=== PATIENT | female | born 1995 ===

== ENCOUNTER → 2023-07-25 | Outpatient (CLI) | payer OTHER ==
[2023-07-25 10:39] LABS: Source, Urine Clean Catch
[2023-07-25 13:31] LABS: BASOPHILS ABSOLUTE AUTO 0.06 K/mm3 (0.00-0.23); BASOPHILS PERCENT AUTO 1 % (0-2); EOSINOPHILS ABSOLUTE AUTO 0.17 K/mm3 (0.00-0.68); EOSINOPHILS PERCENT AUTO 2 % (0-6); Hemoglobin 14.2 g/dL (11.5-16.0); IMMATURE GRAN ABSOLUTE AUTO 0.02 K/mm3 (0.00-0.10); IMMATURE GRAN PERCENT AUTO 0 % (0-1); LYMPHOCYTES ABSOLUTE AUTO 1.53 K/mm3 (0.84-5.20); LYMPHOCYTES PERCENT AUTO 20 % (21-46); MONOCYTES ABSOLUTE AUTO 0.72 K/mm3 (0.16-1.47); MONOCYTES PERCENT AUTO 9 % (4-13); Mean Corpuscular HGB 28.9 pg (26.0-34.0); Mean Corpuscular HGB Conc 33.8 g/dL (31.5-36.5); Mean Corpuscular Volume 86 fL (80-100); NEUTROPHILS ABSOLUTE AUTO 5.31 K/mm3 (1.96-9.15); NEUTROPHILS PERCENT AUTO 68 % (41-73); Platelet Count 287 K/mm3 (150-400); RDW Coefficient Variation 13.5 % (11.7-14.2); RDW Standard Deviation 42.4 fL (35.1-46.3); Red Blood Cell Count 4.91 M/mm3 (3.80-5.20); White Blood Cell Count 7.81 K/mm3 (4.00-11.30)
[2023-07-25 14:03] LABS: Bacteria Few /hpf; Red Blood Cells, Urine 0-2 /hpf (0-2); Squamous Epithelial Cells Mod /hpf (Few)
[2023-07-26 17:53] LABS: HEPATITIS B SURFACE ANTIGEN Negative (Negative)
[2023-07-27 10:03] LABS: HIV 1,2 COMBO ANTIGEN/ANTIBODY Negative (Negative)
[2023-07-27 11:42] LABS: HEPATITIS C AB CIA INTERP Negative (Negative); HEPATITIS C ANTIBODY CIA INDEX 0.06 IV
== END ==
LOC: LAB SHORT 10:31 → LAB 10:31
PROVIDERS: Advanced Practice Midwife
DX: Z34.01 Encounter for supervision of normal first pregnancy, first trimester (principal)
CPT/HCPCS: 36415; 81015; 84443; 85025; 86592; 86762; 86803; 86850; 86900; 86901; 87086; 87340; 87389

== ENCOUNTER → 2024-02-15 | Outpatient (CLI) | payer OTHER, BC ==
[2024-02-15 15:10] LABS: Bacterial Vaginosis PCR Negative (NEGATIVE); Candida Group, PCR NOT DETECTED (NOT DETECT); Candida glabrata-krusei, PCR NOT DETECTED (NOT DETECT)
== END ==
LOC: LAB SHORT 10:39 → LAB 10:39
PROVIDERS: Advanced Practice Midwife
DX: N76.0 Acute vaginitis (principal)
CPT/HCPCS: 87481; 87661; 87801

== ENCOUNTER 2024-03-02 18:46 | Inpatient (IN) | payer OTHER, BC ==
[2024-03-02] VITALS (17 sets, daily range): BP systolic 98–128; BP diastolic 57–80
[~2024-03-02] VITALS: Ht 152.4 cm; Wt 74.1 kg
[2024-03-02] MEDS ORDERED: Lactated Ringer's 1,000 ML IV PRN ×5 (19:25→20:30)
[2024-03-02] MEDS ORDERED: Lactated Ringer's 1,000 ML IV SCH (19:30)
[2024-03-02] MEDS ORDERED: FentaNYL 2mcg/ml-Bup 0.1% Epd 250 ML EPI PRN (19:30)
[2024-03-02] MEDS ORDERED: OXYTOCIN/RINGER'S LACTATE 500 ML IV PRN (19:30)
[2024-03-02] MEDS ORDERED: Ondansetron HCl 2 MG / ML 2ML Vial IV PRN (19:30)
[2024-03-02] MEDS ORDERED: Acetaminophen 500 MG Tab PO PRN (19:30)
[2024-03-02] MEDS ORDERED: ePHEDrine Sulfate 50 MG/ML 1ML Injection XX PRN (19:30)
[2024-03-02] MEDS ORDERED: Calcium Carbonate 500 MG Tab Chew PO PRN (19:30)
[2024-03-02] MEDS ORDERED: Carboprost Tromethamine 250 MCG/ML 1ML Amp IM PRN (19:30)
[2024-03-02] MEDS ORDERED: Tranexamic Acid 100 ML IV SCH (19:30)
[2024-03-02] MEDS ORDERED: Oxytocin 10 Unit / ML Vial IM PRN (19:30)
[2024-03-02] MEDS ORDERED: Methylergonovine Maleate 0.2MG / ML 1ML Amp IM PRN (19:30)
[2024-03-02] MEDS ORDERED: Misoprostol 200 MCG Tab PR PRN (19:30)
[2024-03-02] MEDS ORDERED: Misoprostol 200 MCG Tab BC PRN (19:30)
[2024-03-02 20:21] LABS: BASOPHILS ABSOLUTE AUTO 0.04 K/mm3 (0.00-0.23); BASOPHILS PERCENT AUTO 0 % (0-2); EOSINOPHILS ABSOLUTE AUTO 0.74 K/mm3 (0.00-0.68); EOSINOPHILS PERCENT AUTO 8 % (0-6); Hematocrit 39.4 % (33.0-51.0); Hemoglobin 13.6 g/dL (11.5-16.0); IMMATURE GRAN ABSOLUTE AUTO 0.08 K/mm3 (0.00-0.10); IMMATURE GRAN PERCENT AUTO 1 % (0-1); LYMPHOCYTES ABSOLUTE AUTO 1.54 K/mm3 (0.84-5.20); LYMPHOCYTES PERCENT AUTO 17 % (21-46); MONOCYTES PERCENT AUTO 11 % (4-13); Mean Corpuscular HGB 30.2 pg (26.0-34.0); Mean Corpuscular HGB Conc 34.5 g/dL (31.5-36.5); Mean Corpuscular Volume 88 fL (80-100); Mean Platelet Volume 11.9 fL (9.1-12.4); NEUTROPHILS ABSOLUTE AUTO 5.54 K/mm3 (1.96-9.15); NEUTROPHILS PERCENT AUTO 62 % (41-73); Platelet Count 198 K/mm3 (150-400); RDW Coefficient Variation 14.4 % (11.7-14.2); RDW Standard Deviation 45.9 fL (35.1-46.3); White Blood Cell Count 8.94 K/mm3 (4.00-11.30)
[2024-03-02] MEDS ORDERED: FentaNYL Citrate 50 MCG/ML 2 ML Injection IV PRN (21:40)
[2024-03-02] MEDS ORDERED: FentaNYL Citrate 50 MCG/ML 2 ML Injection ONE (21:41)
[2024-03-03] VITALS (15 sets, daily range): BP systolic 107–122; BP diastolic 53–77
[2024-03-03] MEDS ORDERED: Acetaminophen 500 MG Tab PO PRN (03:05)
[2024-03-03] MEDS ORDERED: Ketorolac Tromethamine 30mg Vial IV PRN (03:10)
[2024-03-03] MEDS ORDERED: Misoprostol 200 MCG Tab PR PRN (03:10)
[2024-03-03] MEDS ORDERED: Methylergonovine Maleate 0.2MG / ML 1ML Amp IM PRN (03:10)
[2024-03-03] MEDS ORDERED: Ibuprofen 400 MG Tab PO PRN (03:10)
[2024-03-03] MEDS ORDERED: Oxytocin 10 Unit / ML Vial IM ONE (03:10)
[2024-03-03] MEDS ORDERED: Lactated Ringer's 1,000 ML IV SCH (03:10)
[2024-03-03] MEDS ORDERED: Lanolin Cream TOP PRN (03:10)
[2024-03-03] MEDS ORDERED: OXYTOCIN/RINGER'S LACTATE 500 ML IV SCH (03:10)
[2024-03-03] MEDS ORDERED: Benzocaine Topical Anesthetic Spray 60GM TOP PRN (03:15)
[2024-03-03] MEDS ORDERED: Witch Hazel/Glycerin PADS TOP PRN (03:15)
[2024-03-03] MEDS ORDERED: Carboprost Tromethamine 250 MCG/ML 1ML Amp IM PRN (03:15)
[2024-03-03] MEDS ORDERED: Docusate Sodium 100 MG Cap PO PRN (03:15)
[2024-03-03] MEDS ORDERED: Prenatal Vit/FE Fumarate/FA 1 Tab PO SCH (09:00)
--- NOTE | 2024-03-03 15:14 | NUR ---
REPORT RECEIVED FROM DWAIN MITCHELL AND PRECEPTOR DWAIN HANNON TO ASSUME CARE OF PT.
--- NOTE | 2024-03-03 15:21 | NUR ---
PT HAS EPDS SCORE OF 15. PROVIDER Tuan PARSONS CNM NOTIFIED. PER PROTOCOL, [facility] REFERRAL PLACED. ALSO CALLED [facility] OFFICE AND MESSAGE LEFT REQUESTING CONSULT.
[2024-03-04 00:40] VITALS: BP 121/66
[2024-03-04 03:49] VITALS: BP 113/62
[2024-03-04] MEDS ORDERED: Carboprost Tromethamine 250 MCG/ML 1ML Amp ONE (06:31)
[2024-03-04 08:09] VITALS: BP 124/75
--- NOTE | 2024-03-04 08:25 | NUR ---
REPORT TAKE ASSUMED CARE
--- NOTE | 2024-03-04 10:15 | NUR ---
EDUCATION RELATED TO ORDERING LUNCH MENU GIVEN AND EXPLAINED - INFORMED IF WANTS SOMETHING DIFFERENT NEEDS TO CALL [facility]; PT AND S.O. VERBALIZED UNDERSTANDING ALREADY SHOWERED, PLANS DISCHARGE TODAY
--- NOTE | 2024-03-04 10:49 | NUR ---
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 HE STATES HE IS UNABLE TO COMPLETE PSYCH ASSESSMENTS IN [place]. ONLY [place]. GAVE HIM A REPORT ON WHY CONSULT IS NEEDED WITH EPDS SCORE OF 15 AND CONSULT MUST BE DONE BEFORE PT IS DISCHARGED. HE IS GOING TO SPEAK WITH HIS ADMINISTRATIVE UNDERWRITER TO TRY TO FIND SOMEONE TO COMPLETE ASSESSMENT.
--- NOTE | 2024-03-04 10:49 | NUR ---
REPORT TO MARCIAL SULLIVAN RN
--- NOTE | 2024-03-04 10:52 | NUR ---
MATERIAL DISTRIBUTOR EDWIN HERE TO SEE PT FOR EPDS CONSULT.
--- NOTE | 2024-03-04 12:20 | NUR ---
DISCHARGE INSTRUCTIONS, WRITTEN AND VERBAL, GIVEN TO PT AND . ANSWERED ALL QUESTIONS. ALL PERSONAL BELONGINGS RETURNED. EPDS SCORE OF 15, CONSULTED WITH EDWIN FROM [facility]. FOLLOW UP APPONTMENT SCHEDULED. PT IS DISCHARGED HOME, DRIVEN BY S.O.
== END 2024-03-04 12:25 | disposition home or self-care (01) | DRG 807 ==
LOC: OBS 18:46 → BC 18:47 → OBS 19:04 → BC 19:29
PROVIDERS: ADMIT Advanced Practice Midwife
PROC: 10E0XZZ Delivery of Products of Conception, External Approach (ICD-10-PCS; principal; 2024-03-02)
PROC: 0HQ9XZZ Repair Perineum Skin, External Approach (ICD-10-PCS; 2024-03-02)
PROC: 10907ZC Drainage of Amniotic Fluid, Therapeutic from Products of Conception, Via Natural or Artificial Opening (ICD-10-PCS; 2024-03-02)
PROC: 3E0R3BZ Introduction of Anesthetic Agent into Spinal Canal, Percutaneous Approach (ICD-10-PCS; 2024-03-02)
PROC: 00HU33Z Insertion of Infusion Device into Spinal Canal, Percutaneous Approach (ICD-10-PCS; 2024-03-02)
DX: O48.0 Post-term pregnancy (principal); Z37.0 Single live birth; O99.344 Other mental disorders complicating childbirth; F41.8 Other specified anxiety disorders; O24.420 Gestational diabetes mellitus in childbirth, diet controlled; O71.82 Other specified trauma to perineum and vulva; O70.0 First degree perineal laceration during delivery; Z3A.40 40 weeks gestation of pregnancy
CPT/HCPCS: 36415; 51702; 85025; 86850; 86900; 86901; A9270; J1885; J2590; J3010; J7120